=== PATIENT | male | born 1950 | race Caucasian/White ===

== ENCOUNTER 2024-08-25 09:02 | Day surgery (SDC) | payer MEDICARE, OTHER ==
[2024-08-24 14:47] LABS: BASOPHILS # (AUTO) 0.1 X10'3 (0-0.2); BASOPHILS % (AUTO) 0.9 % (0-1); EOSINOPHILS # (AUTO) 0.1 X10'3 (0-0.9); EOSINOPHILS % (AUTO) 1.3 % (0-6); HEMATOCRIT 41.5 % (42.0-52.0); HEMOGLOBIN 14.3 g/dl (14.0-17.9); LYMPHOCYTES # (AUTO) 2.8 X10'3 (1.1-4.8); LYMPHOCYTES % (AUTO) 37.8 % (21-51); MEAN CORPUSCULAR HGB CONC 34.4 g/dL (33.0-36.5); MEAN CORPUSCULAR VOLUME 90.2 FL (78-98); MEAN PLATELET VOLUME 7.8 FL (7.4-10.4); MONOCYTES # (AUTO) 0.7 X10'3 (0-0.9); MONOCYTES % (AUTO) 9.7 % (2-12); NEUTROPHILS # (AUTO) 3.7 X10'3 (1.8-7.7); NEUTROPHILS % (AUTO) 50.3 % (42-75); PLATELET COUNT 249 X10'3 (140-440); RED CELL DISTRIBUTION WIDTH 13.8 % (11.5-14.5); WHITE BLOOD COUNT 7.4 X10'3 (4.5-11.0)
[2024-08-24 14:54] LABS: ALBUMIN 3.4 G/DL (3.4-5.0); ANION GAP 10 (8-16); BLOOD UREA NITROGEN 15 MG/DL (7-18); BUN/CREATININE RATIO 17.9 (10.0-20.0); CALCIUM 9.1 MG/DL (8.5-10.1); CHLORIDE 104 MMOL/L (99-107); CREATININE 0.84 MG/DL (0.60-1.10); GLUCOSE 92 MG/DL (70-104); POTASSIUM 3.8 MMOL/L (3.5-5.1); SODIUM 140 MMOL/L (135-145); TOTAL CARBON DIOXIDE 25.8 MMOL/L (24-32); eGFR 90 ML/MIN
[2024-08-24 14:58] LABS: APTT 28 SECONDS (22-32); PROTHROMBIN TIME 10.4 SECONDS (9.0-12.0)
[~2024-08-25] VITALS: Ht 190.5 cm; Wt 118.3 kg
[2024-08-25] VITALS (11 sets, daily range): BP systolic 103–165; BP diastolic 70–97; PULSE 59–73; RESP 14–16; TEMP 98.2; O2SAT 92–95
[2024-08-25] MEDS ORDERED: LORazepam 0.5 MG tablet PO PRN (09:25)
[2024-08-25] MEDS ORDERED: ESCI20TA39 PO (09:48)
[2024-08-25] MEDS ORDERED: VIBE75TA PO (09:48)
[2024-08-25] MEDS ORDERED: OMEP20CA16 PO (09:48)
[2024-08-25] MEDS ORDERED: TAMSULOSIN (09:48)
[2024-08-25] MEDS ORDERED: DUTA0.5C36 PO (09:49)
[2024-08-25] MEDS ORDERED: ROSU20TA98 PO (09:50)
[2024-08-25] MEDS ORDERED: AVO0.5C PO (09:51)
[2024-08-25] MEDS: normal saline 1,000 ML IV SCH (11:54)
[2024-08-25] MEDS: diphenhydrAMINE 25mg capsule PO PRN (11:54)
[2024-08-25] MEDS ORDERED: iohexol 350 MG/ML 50ML vial IV ONE (12:37)
[2024-08-25] MEDS ORDERED: fentaNYL/PF 50MCG/1 ML 2ML syringe ONE (12:37)
[2024-08-25] MEDS ORDERED: heparin 1,000unit/ml 10ml vial 10 ML ONE (12:37)
[2024-08-25] MEDS ORDERED: verapamil 2.5 mg/ml inj IV ONE (12:37)
[2024-08-25] MEDS ORDERED: midazolam 1 mg/ML 2ml injection ONE (12:37)
[2024-08-25] MEDS ORDERED: iohexol 350MG/ML 100ml bottle IV ONE ×2 (12:38→13:51)
[2024-08-25] MEDS ORDERED: nitroGLYCERIN 500mcg/5mL D5W 5 ML IV ONE ×2 (12:38→12:53)
[2024-08-25] MEDS ORDERED: LIDOcaine 1% (10mg/ml) 2ml vial ONE (12:53)
[2024-08-25] MEDS ORDERED: heparin 25,000 UNIT/250ml bag 250 ML IV ONE (13:58)
[2024-08-25] MEDS ORDERED: HYDROcodone/acetaminophen 10/325mg tab PO PRN (15:00)
[2024-08-25] MEDS ORDERED: proCHLORperazine 10 MG/2 ml inj IV PRN (15:00)
[2024-08-25] MEDS ORDERED: ondansetron/PF 4mg/2ml inj IV PRN (15:00)
[2024-08-25] MEDS ORDERED: normal saline 1000ml 1,000 ML IV SCH (15:00)
[2024-08-25] MEDS: HYDROcodone/acetaminophen 5mg/325mg tablet PO PRN (17:14)
[2024-08-25] MEDS ORDERED: ROSU40TA PO (18:31)
[2024-08-25] MEDS ORDERED: METO-539 PO (18:31)
[2024-08-25] MEDS ORDERED: ASPI-1071 PO (18:31)
[2024-08-26 09:32] LABS: ISTAT HGB MIX 13.9 g/dl (14.0-17.9); ISTAT Hct MIX 41 %PCV (42-52); ISTAT O2 SATURATION MIX VENOUS 89 % (60-80); ISTAT SOURCE BLNK
[2024-08-26 09:32] LABS: ISTAT HGB MIX 13.6 g/dl (14.0-17.9); ISTAT Hct MIX 40 %PCV (42-52); ISTAT O2 SATURATION MIX VENOUS 62 % (60-80); ISTAT SOURCE VEN
== END 2024-08-25 18:40 | disposition home or self-care (01) ==
LOC: SSTAY O 09:02
PROVIDERS: ATTEND Internal Medicine Cardiovascular Disease
DX: I25.10 Atherosclerotic heart disease of native coronary artery without angina pectoris (principal); G47.30 Sleep apnea, unspecified; E78.5 Hyperlipidemia, unspecified; R06.02 Shortness of breath; Z98.890 Other specified postprocedural states; K21.9 Gastro-esophageal reflux disease without esophagitis; G47.33 Obstructive sleep apnea (adult) (pediatric); E66.3 Overweight; Z79.01 Long term (current) use of anticoagulants; Z82.49 Family history of ischemic heart disease and other diseases of the circulatory system; Z79.899 Other long term (current) drug therapy; Z68.31 Body mass index [BMI] 31.0-31.9, adult
CPT/HCPCS: 36415; 80048; 82803; 85014; 85025; 85610; 85730; 93005; 93460; 99152; 99153; A6258; A6402; C1725; C1751; C1769; C1894; J1644; J2003; J2250; J3010; J3490; J7030; Q0163; Q9967; Z7610; 76937